=== PATIENT | female | born 1990 | race Asian ===

== ENCOUNTER 2024-01-24 19:44 | Emergency (ER) | payer OTHER, MEDICAID, SELFPAY ==
--- NOTE | 2024-01-24 19:56 | ED_ITS ---
HPI - General Adult General Chief complaint: Toxicology Problem Stated complaint: Hallucinations Time Seen by Provider: 01/24/24 19:46 Source: patient and EMS Mode of arrival: EMS History of Present Illness HPI narrative: Patient is a 34-year-old female known history of substance abuse. Her last use of methamphetamine per her report was 2 weeks ago. She states she was trying to wean off the use of methamphetamine so she started to use other? non hard? drugs. She contacted EMS tonight because she was hallucinating. States that she did ?space cast? which apparently is nitrous oxide. Patient has been very tangential upon initial history. She denied the use of any other intoxicating substances. No trauma. Related Data Home Medications Medication Instructions Recorded Confirmed No Known Home Medications 01/24/24 01/24/24 Allergies Allergy/AdvReac Type Severity Reaction Status Date / Time No Known Drug Allergies Allergy Verified 01/24/24 19:57 Review of Systems Review of Systems Narrative: See HPI Exam Initial Vital Signs Initial Vital Signs: Vital Signs Temperature 98.9 F 01/24/24 19:58 Pulse Rate 92 H 01/24/24 19:58 Respiratory Rate 18 01/24/24 19:58 Blood Pressure 134/74 01/24/24 19:58 Pulse Oximetry 100 01/24/24 19:58 Oxygen Delivery Method Room Air 01/24/24 19:58 HENMT Head: normal to inspection and normocephalic Resp Effort & Inspection: normal respiratory effort Cardio Rate: regular rate Neuro General: patient alert, patient awake and moves all extremities Extrem General: normal to inspection Psych Other: Patient has fluctuating affect to periods of time where she was laughing another periods of time where she was very sad. Is calm. He was cooperative. Course Orders Ordered: ED Orders 01/24/24 20:02 Consult to [facility] [place] - Advertising Solicitor Stat Vital Signs Vital signs: Vital Signs - 8 hr 01/24/24 19:58 01/24/24 20:02 01/24/24 21:30 Temperature 98.9 F 98.4 F Pulse Rate 92 H 93 H 83 Respiratory Rate 18 14 Blood Pressure 134/74 107/53 L 115/54 L Pulse Oximetry 100 100 99 Oxygen Delivery Method Room Air Room Air Room Air Medical Decision Making [facility] Narrative Medical decision making narrative: Patient is alert. Does admit to using nitrous oxide which is most likely the cause of her symptoms. Denies any other intoxicating substances. After observation here in the emergency department or symptoms did seem to improve. She has a friend with her who is comfortable taking her home. Will discharge patient home return precautions. Discharge Plan Departure Patient Disposition: Home Clinical Impression: Substance Abuse Instructions: DI for Substance Use Disorder Activity Restrictions/Additional Instructions: No driving for the next 24 hours or in the future if you in just intoxicating substances. Return to the emergency department for new symptoms. Prescriptions: No Action No Known Home Medications Referrals: Alen Saavedra MD [Primary Care Provider] - Stand Alone Forms: Patient Portal/API
[2024-01-24 19:58] VITALS: BP 134/74; PULSE 92; RESP 18; TEMP 37.2; O2SAT 100
[2024-01-24 20:02] VITALS: BP 107/53; PULSE 93; O2SAT 100
--- NOTE | 2024-01-24 20:08 | PC.NURSE ---
Pt reports that she is homeless, and took the space gas to show the person she was with how stupid they are.
[2024-01-24 21:30] VITALS: BP 115/54; PULSE 83; RESP 14; TEMP 36.9; O2SAT 99
== END 2024-01-24 21:30 | disposition home or self-care (01) ==
PROVIDERS: Emergency Provider Emergency Medicine; Family Provider Family Medicine; PCP Family Medicine
DX: F19.10 Other psychoactive substance abuse, uncomplicated (principal)
CPT/HCPCS: 99283

== ENCOUNTER 2024-01-26 00:16 | Emergency (ER) | payer OTHER, MEDICAID, SELFPAY ==
[2024-01-26 00:28] VITALS: BP 123/67; PULSE 82; RESP 18; TEMP 36.7; O2SAT 100; BMI 18.8
--- NOTE | 2024-01-26 00:28 | ED_ITS ---
HPI - Psych General Chief Complaint: Psychiatric Symptoms Stated Complaint: realization of life Time Seen by Provider: 01/26/24 00:17 History of Present Illness HPI Narrative: 34yoF with PMH polysubstance use (meth, whippets, fentanyl) presents by private vehicle, brought in by her step-father for bizarre behavior. Patient seen last night for hallucinations after using nitrous oxide. Patient states that she stopped using methamphetamines on her birthday. She says that she used to be dumb, but I got smart and had a realization of life. Patient denies wanting to harm herself or others. Patient repeatedly states that she had a realization of life, but cannot describe what that means. Denies specific complaints. Related Data Home Medications Medication Instructions Recorded Confirmed No Known Home Medications 01/24/24 01/24/24 Allergies Allergy/AdvReac Type Severity Reaction Status Date / Time No Known Drug Allergies Allergy Verified 01/24/24 19:57 Patient History Substance Use Type: methamphetamine Exam Initial Vital Signs Initial Vital Signs: Vital Signs Temperature 98.1 F 01/26/24 00:28 Pulse Rate 82 01/26/24 00:28 Respiratory Rate 18 01/26/24 00:28 Blood Pressure 123/67 01/26/24 00:28 Pulse Oximetry 100 01/26/24 00:28 Oxygen Delivery Method Room Air 01/26/24 00:28 Const: Awake, alert, no acute distress, nontoxic appearing Cardiac: regular rate, regular rhythm RESP: unlabored, clear bilaterally, no wheezing Skin: Warm, Dry, intact, no rashes Neuro: AO x3, CN II-XII grossly intact, moves all extremities Psych: tangential thought process, denies suicidal or homiciddal ideations Course Orders Ordered: ED Orders 01/26/24 00:26 Complete Blood Count AUTO DIFF Stat Comprehensive Metabolic Panel Stat Urine Drug Screen, Rapid Stat Vital Signs Vital signs: Vital Signs - 8 hr 01/26/24 00:28 Temperature 98.1 F Pulse Rate 82 Respiratory Rate 18 Blood Pressure 123/67 Pulse Oximetry 100 Oxygen Delivery Method Room Air MDM - Psych Lab Data 01/26/24 00:55 01/26/24 00:55 Labs: Lab Results 01/26/24 01/26/24 Range/Units 00:50 00:55 WBC 7.5 (4.5-11.0) X10^3/uL RBC 3.61 L (4.0-5.2) X10^6/uL Hgb 11.5 L (12.0-16.0) g/dL Hct 34.1 L (36-46) % MCV 94.3 (80-100) fL MCH 31.8 (26-34) PG MCHC 33.7 (30-36) % RDW 15.8 H (11.6-14.8) % Plt Count 274 (150-400) X10^3/uL Neut % (Auto) 47.9 L (50-75) % Lymph % (Auto) 36.3 (25-40) % [place] % (Auto) 10.8 (3-14) % Eos % (Auto) 4.3 H (2-4) % Baso % (Auto) 0.7 (0-2) % Neut # (Auto) 3600 (1004-2011) /uL Lymph # (Auto) 2700 (0000-4593) /uL [place] # (Auto) 800 (0-900) /uL Eos # (Auto) 300 (0-450) /uL Baso # (Auto) 100 (0-100) /uL Sodium 138 (137-145) mmol/L Potassium 4.1 (3.4-5.1) mmol/L Chloride 107 (98-107) mmol/L Carbon Dioxide 26 (22-32) mmol/L BUN 20 H (7-17) mg/dL Creatinine 0.73 (0.52-1.04) mg/dL Estimated GFR > 60 (>60) mL/min BUN/Creatinine Ratio 27.4 H (6-22) Glucose 97 (70-100) mg/dL Calcium 8.3 L (8.4-10.2) mg/dL Total Bilirubin 0.2 (0.2-1.3) mg/dL AST 31 (14-36) IU/L ALT 11 (<35) IU/L Alkaline Phosphatase 38 (38-126) U/L Total Protein 6.8 (6.3-8.2) g/dL Albumin 3.8 (3.5-5.0) g/dL Globulin 3.0 (1.7-4.1) g/dL Albumin/Globulin Ratio 1.3 (1.0-2.8) U Opiates 300ng/mL cut Negative (Negative) Ur Oxycodone Screen Negative (Negative) Urine Methadone Screen Negative (Negative) Ur Barbiturates Screen Negative (Negative) U Tricyclic Antidepress Negative (Negative) Ur Phencyclidine Scrn Negative (Negative) Ur Amphetamines Screen Negative (Negative) U Methamphetamines Scrn Negative (Negative) Ur MDMA Scrn (Ecstasy) Negative (Negative) U Benzodiazepines Scrn Negative (Negative) Urine Cocaine Screen Negative (Negative) U Marijuana (THC) Screen Negative (Negative) Urine pH Normal (Normal) Urine Specific [place] Normal (Normal) Ur Creatinine Normal (Normal) Point of Care Testing Test Results Negative Urine Dip Bedside Urine Glucose Negative Bedside Urine Bilirubin - Negative Bedside Urine Ketone - Negative Urine Specific [place] 1.020 Bedside Urine Occult Blood - Negative Bedside Urine pH 7.0 Bedside Urine Protein - Negative Bedside Urine Urobilinogen - Negative Bedside Urine Nitrite - Negative Bedside Urine Leukocytes - Negative Esterase MDM Narrative Medical decision making narrative: Well-appearing patient apparently brought in by family members for bizarre behavior. Patient repeatedly states that she had a realization of life, but it was not certain why patient was in the emergency department today. When asked how the emergency department can help her she states ?I do not know?. Basic laboratory work performed, no significant abnormalities identified. Patient was uncertain if she could be or not, point of care test negative. Patient was given cards to primary care resources in the area and counseled on the importance of routine primary care maintenance. Discharge Plan Departure Patient Disposition: Home Clinical Impression: Normal exam Instructions: Mental Health Services: An Overview Activity Restrictions/Additional Instructions: Your laboratory work today was normal. I recommend using one of the numbers on the cards you received today to set up a general exam with a primary care doctor Prescriptions: No Action No Known Home Medications Referrals: Alen Saavedra MD [Primary Care Provider] - Stand Alone Forms: Patient Portal/API
[2024-01-26 01:03] LABS: Ur Creatinine Normal (Normal); Ur Specific Gravity Normal (Normal); Urine pH Normal (Normal)
[2024-01-26 01:04] LABS: UR Morphine/Opiate cutoff 300 Negative (Negative); Urine Amphetamines Negative (Negative); Urine Barbiturates Negative (Negative); Urine Benzodiazepines Negative (Negative); Urine Cocaine Negative (Negative); Urine MDMA Negative (Negative); Urine Methadone Negative (Negative); Urine Methamphetamines Negative (Negative); Urine Oxycodone Negative (Negative); Urine Phencyclidine Negative (Negative); Urine Tetrahydrocannabinol Negative (Negative); Urine Tricyclic Antidepressant Negative (Negative)
[2024-01-26 01:11] LABS: Add Manual Diff / Slide Review NO; Basophils Absolute Auto 100 /uL (0-100); Basophils Percent Auto 0.7 % (0-2); Eosinophils Absolute Auto 300 /uL (0-450); Eosinophils Percent Auto 4.3 % (2-4); Hematocrit 34.1 % (36-46); Hemoglobin 11.5 g/dL (12.0-16.0); Lymphocytes Absolute Auto 2700 /uL (1100-4500); Lymphocytes Percent Auto 36.3 % (25-40); Mean Corpuscular HGB Conc 33.7 % (30-36); Mean Corpuscular Hemoglobin 31.8 PG (26-34); Mean Corpuscular Volume 94.3 fL (80-100); Monocytes Absolute Auto 800 /uL (0-900); Monocytes Percent Auto 10.8 % (3-14); Neutrophils Absolute Auto 3600 /uL (1500-7000); Neutrophils Percent Auto 47.9 % (50-75); Platelet Count 274 X10^3/uL (150-400); Red Blood Cell Count 3.61 X10^6/uL (4.0-5.2); Red Cell Distribution Width 15.8 % (11.6-14.8); White Blood Cell Count 7.5 X10^3/uL (4.5-11.0)
--- NOTE | 2024-01-26 01:16 | PC.NURSE ---
Pt states possible has mental health history, state was prescribed buspiron years ago but didn't take them. Pt has been off meth since 01/10/24. She states she has some life realizations, including having suppressed feelings, realizing she should be further in life. she reports she being controlled by having to rely on others for rides and different needs. pt is starting to realize she needs help if she wants to succeed.
[2024-01-26 01:22] LABS: Alanine Aminotransferase 11 IU/L (<35); Albumin 3.8 g/dL (3.5-5.0); Albumin Globulin Ratio 1.3 (1.0-2.8); Alkaline Phosphatase 38 U/L (38-126); Aspartate Aminotransferase 31 IU/L (14-36); BUN Creatinine Ratio 27.4 (6-22); Bilirubin Total 0.2 mg/dL (0.2-1.3); Blood Urea Nitrogen 20 mg/dL (7-17); Calcium 8.3 mg/dL (8.4-10.2); Carbon Dioxide 26 mmol/L (22-32); Chloride 107 mmol/L (98-107); Estimated Glomerular Filt Rate > 60 mL/min (>60); Glucose 97 mg/dL (70-100); HEMOLYSIS 17 (0-50); Potassium 4.1 mmol/L (3.4-5.1); Sodium 138 mmol/L (137-145); Total Protein 6.8 g/dL (6.3-8.2)
[2024-01-26 01:36] VITALS: O2SAT 100
[2024-01-26 01:37] VITALS: BP 104/57; PULSE 90; RESP 18; O2SAT 100
== END 2024-01-26 01:47 | disposition home or self-care (01) ==
PROVIDERS: Emergency Provider Emergency Medicine; Family Provider Family Medicine; PCP Family Medicine
DX: F19.10 Other psychoactive substance abuse, uncomplicated (principal); R79.89 Other specified abnormal findings of blood chemistry
CPT/HCPCS: 36415; 80053; 80305; 81003; 81025; 85025; 99283; 99284

== ENCOUNTER 2024-02-14 20:04 | Emergency (ER) | payer OTHER, MEDICAID, SELFPAY ==
[2024-02-14 20:06] VITALS: BP 114/62; PULSE 69; RESP 17; TEMP 36.6; O2SAT 100; BMI 21.1
[2024-02-14 20:28] LABS: Ur Creatinine Normal (Normal); Ur Specific Gravity Normal (Normal); Urine pH Normal (Normal)
--- NOTE | 2024-02-14 20:28 | PC.NURSE ---
Patient pacing in room, holding phone as if she is talking to someone but phone is not on. She also is stating second hand smoke works you guys.
[2024-02-14 20:29] LABS: UR Morphine/Opiate cutoff 300 Negative (Negative); Urine Amphetamines Negative (Negative); Urine Cocaine Negative (Negative); Urine Methamphetamines Positive (Negative); Urine Phencyclidine Negative (Negative); Urine Tetrahydrocannabinol Negative (Negative)
[2024-02-14 20:30] LABS: Urine Barbiturates Negative (Negative); Urine Benzodiazepines Negative (Negative); Urine MDMA Negative (Negative); Urine Methadone Negative (Negative); Urine Oxycodone Negative (Negative); Urine Tricyclic Antidepressant Negative (Negative)
--- NOTE | 2024-02-14 20:35 | ED.PSYCH ---
HPI - Psych General Chief Complaint: Psychiatric Symptoms Stated Complaint: Mental Health Time Seen by Provider: 02/14/24 20:06 Source: patient and EMS Mode of arrival: EMS Limitations: other (Manic state) History of Present Illness HPI Narrative: 34-year-old female who has been seen here multiple times in the past for various substance abuse issues. She comes to the emergency department this evening by EMS for an obvious manic state. Patient is really unable to provide any HPI. She denies the use of drugs or alcohol however she has used space gas? in the past and made comments during her visit today then she has use methamphetamine. Unsure when the last time that she was used any of these substances. Patient is very tangential. She talks about needing to talk with? corporate?. She is obviously responding to internal stimuli. She was talking to herself. She admits that she was talking to herself but what specifically say that she was hearing voices. She did denies suicidal/homicidal ideation. Apparently she was recently admitted to [facility]. She stated that she would like to go back to [facility]. She feels safe at [facility]. Patient was unable/unwilling to answer any further questions. Related Data Home Medications Medication Instructions Recorded Confirmed No Known Home Medications 01/24/24 02/14/24 Allergies Allergy/AdvReac Type Severity Reaction Status Date / Time No Known Drug Allergies Allergy Verified 02/14/24 20:12 Review of Systems Review of Systems Narrative: Unable to obtain full review of systems secondary to manic state. Patient History Social History Smoking Status: Never smoker Smoking Status: Never smoker Substance Use Type: methamphetamine Exam Initial Vital Signs Initial Vital Signs: Vital Signs Temperature 98 F 02/14/24 20:06 Pulse Rate 69 02/14/24 20:06 Respiratory Rate 17 02/14/24 20:06 Blood Pressure 114/62 02/14/24 20:06 Pulse Oximetry 100 02/14/24 20:06 Oxygen Delivery Method Room Air 02/14/24 20:06 Const General: anxious, No combative, No disheveled and No ill appearing HENMT Head: normal to inspection and normocephalic Resp Effort & Inspection: normal respiratory effort Cardio Rate: regular rate GI Inspection: non-distended Neuro General: patient alert, patient awake, gait normal and moves all extremities Extrem Other: No gross deformities Psych Other: Patient has flight of ideas. Is very tangential. Is obviously responding to internal stimuli. She states that we need to talk with ?corporate? she does admit that she was talking to herself. Does admit that she was hearing voices. Did deny suicidal/homicidal ideation. Stated that she would like to go back to [facility]. Course Orders Ordered: ED Orders 02/14/24 20:12 Consult to S[employer]IOR [employer]CH[employer] - Funding Specialist Stat 02/14/24 20:15 Urine Drug Screen, Rapid Stat 02/14/24 20:33 Acetaminophen Stat Complete Blood Count AUTO DIFF Stat Comprehensive Metabolic Panel Stat Ethanol (ETOH) Stat Free T4, Direct Thyroxine Stat Salicylate Stat Thyroid Stimulating Hormone Stat Discontinued Medications Olanzapine (Olanzapine Odt 10 Mg Tab) 10 mg PO NOW ONE Stop: 02/14/24 20:38 Last Admin: 02/14/24 20:41 Dose: 10 mg Documented By: ANN Vital Signs Vital signs: Vital Signs - 8 hr 02/14/24 20:06 Temperature 98 F Pulse Rate 69 Respiratory Rate 17 Blood Pressure 114/62 Pulse Oximetry 100 Oxygen Delivery Method Room Air MDM - Psych Medical Records Attestation: I reviewed the patient's medical records. Lab Data Attestation: I reviewed the patient's lab results. 02/14/24 20:33 02/14/24 20:33 Labs: Lab Results 02/14/24 02/14/24 Range/Units 20:15 20:33 WBC 10.5 (4.5-11.0) X10^3/uL RBC 3.72 L (4.0-5.2) X10^6/uL Hgb 12.0 (12.0-16.0) g/dL Hct 35.4 L (36-46) % MCV 95.1 (80-100) fL MCH 32.3 (26-34) PG MCHC 34.0 (30-36) % RDW 16.7 H (11.6-14.8) % Plt Count 381 (150-400) X10^3/uL Neut % (Auto) 59.8 (50-75) % Lymph % (Auto) 27.4 (25-40) % [place] % (Auto) 9.8 (3-14) % Eos % (Auto) 1.8 L (2-4) % Baso % (Auto) 1.2 (0-2) % Neut # (Auto) 6200 (8968-9873) /uL Lymph # (Auto) 2900 (7159-4877) /uL [place] # (Auto) 1000 H (0-900) /uL Eos # (Auto) 200 (0-450) /uL Baso # (Auto) 100 (0-100) /uL Sodium 139 (137-145) mmol/L Potassium 4.0 (3.4-5.1) mmol/L Chloride 108 H (98-107) mmol/L Carbon Dioxide 24 (22-32) mmol/L BUN 23 H (7-17) mg/dL Creatinine 0.78 (0.52-1.04) mg/dL Estimated GFR > 60 (>60) mL/min BUN/Creatinine Ratio 29.5 H (6-22) Glucose 92 (70-100) mg/dL Calcium 8.9 (8.4-10.2) mg/dL Total Bilirubin 0.4 (0.2-1.3) mg/dL AST 32 (14-36) IU/L ALT 11 (<35) IU/L Alkaline Phosphatase 47 (38-126) U/L Total Protein 7.4 (6.3-8.2) g/dL Albumin 4.4 (3.5-5.0) g/dL Globulin 3.0 (1.7-4.1) g/dL Albumin/Globulin Ratio 1.5 (1.0-2.8) Salicylates < 1.0 (<20) mg/dL U Opiates 300ng/mL cut Negative (Negative) Ur Oxycodone Screen Negative (Negative) Urine Methadone Screen Negative (Negative) Acetaminophen < 10 (10-30) ug/mL Ur Barbiturates Screen Negative (Negative) U Tricyclic Antidepress Negative (Negative) Ur Phencyclidine Scrn Negative (Negative) Ur Amphetamines Screen Negative (Negative) U Methamphetamines Scrn Positive H (Negative) Ur MDMA Scrn (Ecstasy) Negative (Negative) U Benzodiazepines Scrn Negative (Negative) Urine Cocaine Screen Negative (Negative) U Marijuana (THC) Screen Negative (Negative) Urine pH Normal (Normal) Urine Specific [place] Normal (Normal) Ethyl Alcohol < 10 ( - 10) mg/dL Ur Creatinine Normal (Normal) Point of Care Testing Test Results Negative Urine Dip Bedside Urine Glucose Negative Bedside Urine Bilirubin - Negative Bedside Urine Ketone - Negative Urine Specific [place] 1.025 Bedside Urine Occult Blood - Negative Bedside Urine pH 6.0 Bedside Urine Protein - Negative Bedside Urine Urobilinogen - Negative Bedside Urine Nitrite - Negative Bedside Urine Leukocytes - Negative Esterase MDM Narrative Medical decision making narrative: Patient was obviously in a manic state. She did agree to taking Zyprexa. Unsure if she was actually on any medications. Her urinalysis is positive for methamphetamine. She was medically cleared. Social work consult placed however patient is voluntary and after period of observation patient states she would like to be discharged. She does have a friend with her who has been with her in the past when she was been to the emergency department. Patient has a expressed multiple times she was not suicidal and not homicidal and feels safe. Her friend with her states then he was comfortable taking her home and will take her directly to [facility] if she wishes. Were given return precautions. Discharge Plan Departure Patient Disposition: Home Clinical Impression: [place], Methamphetamine use Activity Restrictions/Additional Instructions: You can return to the emergency department at any point if you change your mind. No driving for the next 24 hours. Return to the emergency department for new or worsening symptoms. Prescriptions: No Action No Known Home Medications Referrals: Alen Saavedra MD [Primary Care Provider] - Stand Alone Forms: Patient Portal/API
[2024-02-14] MEDS: OLANZapine ODT 10 MG TAB PO (20:41)
[2024-02-14 20:43] LABS: Add Manual Diff / Slide Review NO; Basophils Absolute Auto 100 /uL (0-100); Basophils Percent Auto 1.2 % (0-2); Eosinophils Absolute Auto 200 /uL (0-450); Eosinophils Percent Auto 1.8 % (2-4); Hematocrit 35.4 % (36-46); Lymphocytes Absolute Auto 2900 /uL (1100-4500); Lymphocytes Percent Auto 27.4 % (25-40); Mean Corpuscular Hemoglobin 32.3 PG (26-34); Mean Corpuscular Volume 95.1 fL (80-100); Monocytes Absolute Auto 1000 /uL (0-900); Monocytes Percent Auto 9.8 % (3-14); Neutrophils Absolute Auto 6200 /uL (1500-7000); Neutrophils Percent Auto 59.8 % (50-75); Platelet Count 381 X10^3/uL (150-400); Red Blood Cell Count 3.72 X10^6/uL (4.0-5.2); Red Cell Distribution Width 16.7 % (11.6-14.8); White Blood Cell Count 10.5 X10^3/uL (4.5-11.0)
--- NOTE | 2024-02-14 20:43 | PC.NURSE ---
Dr. Beaulieu allowing pt to have visitors. Silvio, patient's SO other in room visiting with patient and brought her food.
[2024-02-14 21:06] LABS: Acetaminophen < 10 ug/mL (10-30); Alanine Aminotransferase 11 IU/L (<35); Albumin 4.4 g/dL (3.5-5.0); Albumin Globulin Ratio 1.5 (1.0-2.8); Alkaline Phosphatase 47 U/L (38-126); Aspartate Aminotransferase 32 IU/L (14-36); BUN Creatinine Ratio 29.5 (6-22); Bilirubin Total 0.4 mg/dL (0.2-1.3); Blood Urea Nitrogen 23 mg/dL (7-17); Calcium 8.9 mg/dL (8.4-10.2); Carbon Dioxide 24 mmol/L (22-32); Chloride 108 mmol/L (98-107); Estimated Glomerular Filt Rate > 60 mL/min (>60); Ethanol (ETOH) < 10 mg/dL; Glucose 92 mg/dL (70-100); HEMOLYSIS < 15 (0-50); Salicylate < 1.0 mg/dL (<20); Sodium 139 mmol/L (137-145); Total Protein 7.4 g/dL (6.3-8.2)
[2024-02-14 21:26] LABS: Free T4, Direct Thyroxine 0.87 ng/dL (0.78-2.19)
[2024-02-14 21:33] VITALS: BP 102/54; PULSE 75; RESP 20; O2SAT 98
--- NOTE | 2024-02-14 21:35 | PC.NURSE ---
Patient states she want to go to [facility] or to [facility] for psych. Patient denies SI or HI. Is able to hold a conversation. Silvio, her friend is at bedside and states he will take her to [facility] as she has been there before. Dr. Beaulieu notified and pt is cleared for discharge. Patient discharged with her friend Silvio.
== END 2024-02-14 21:42 | disposition home or self-care (01) ==
PROVIDERS: Emergency Provider Emergency Medicine; Family Provider Family Medicine; PCP Family Medicine
DX: F30.9 Manic episode, unspecified (principal); F15.10 Other stimulant abuse, uncomplicated
CPT/HCPCS: 36415; 80053; 80305; 80320; 80329; 81003; 81025; 84439; 84443; 85025; 99284; G0480